=== PATIENT | male | born 1975 | race Caucasian/White ===

== ENCOUNTER 2018-05-21 10:24 | Emergency (ER) | payer MEDICARE, MEDICAID ==
[~2018-05-21] VITALS: Ht 121.9 cm; Wt 70.3 kg
[2018-05-21] MEDS ORDERED: SERT50TA PO (10:34)
[2018-05-21] MEDS ORDERED: OLAN20TA3 PO (10:34)
[2018-05-21] MEDS ORDERED: LEVETIRACETAM 250 MG TABLET PO ONE (10:45)
--- NOTE | 2018-05-21 10:50 | NUR ---
Patient discharged to home in stable conditon. Written and verbal after care instructions given. Patient verbalizes understanding of instructions.pt wakls in steady gait. hospital sandwich and juice provided per pt request. pt ate with good appetite
[2018-05-21 10:51] VITALS: BP 129/81
[2018-05-21] MEDS ORDERED: LEVETIRACETAM 250 MG TABLET ONE (10:53)
== END 2018-05-21 10:52 | disposition home or self-care (01) ==
LOC: ER 10:24
DX: R56.9 Unspecified convulsions (principal); Z88.8 Allergy status to other drugs, medicaments and biological substances; Z90.89 Acquired absence of other organs
CPT/HCPCS: A4663